=== PATIENT | female | born 1990 | race Caucasian/White ===

== ENCOUNTER 2019-09-22 03:30 | Inpatient (IN) | payer OTHER, SELFPAY ==
[2019-09-22] VITALS (104 sets, daily range): BP systolic 77–139; BP diastolic 36–86; PULSE 67–136; RESP 16; TEMP 36.2–37; O2SAT 97–100; BMI 33.2
[2019-09-22 05:25] LABS: Basophils Percent Auto 0.2 % (0.2-1.2); Eosinophils Absolute Auto 0.1 K/mm3 (0-0.3); Eosinophils Percent Auto 0.6 % (0-4.4); Hematocrit 34.1 % (37.0-47.0); Hemoglobin 11.7 g/dL (12.0-15.0); Immature Granulocyte Absolute 0.16 K/mm3 (0.00-0.031); Immature Granulocyte Percent A 1.2 % (0-0.5); Lymphocytes Absolute Auto 2.41 K/mm3 (0.9-3.2); Lymphocytes Percent Auto 18.7 % (18.3-44.2); Mean Corpuscular HGB Conc 34.3 g/dl (32-36); Mean Corpuscular Hemoglobin 31.8 pg (26-34); Mean Corpuscular Volume 92.7 fl (80-100); Mean Platelet Volume 9.7 fl (7.4-10.4); Monocytes Absolute Auto 0.9 K/mm3 (0.1-0.6); Neutrophils Absolute Auto 9.3 K/mm3 (1.3-6.7); Neutrophils Percent Auto 72.3 % (45.5-73.1); Platelet Count Result 211 k/mm3 (150-375); Red Blood Count 3.68 M/mm3 (4.2-5.4); Red Cell Distribution Width 13.3 % (11.5-14.5); White Blood Count 12.9 K/mm3 (4.5-10.0)
--- NOTE | 2019-09-22 06:11 | WPDANESEPP ---
Anes - Eval Pre Procedure Procedure: Labor epidural Date/Time: 09/22/19 06:11 Surgeon: Teetee Preop Diagnosis: pain during labor Pre Op Diagnosis: Leaking Fluid Patient Data Age: 29 Gender: F Height: 1.6 m Weight: 85 kg Last Vital Signs Temp 37.0 C 09/22/19 03:59 Pulse 76 09/22/19 05:04 BP 119/78 09/22/19 05:04 Allergies Allergy/AdvReac Type Severity Reaction Status Date / Time No Known Allergies Allergy Mild Verified 08/23/19 12:37 Home Medications Medication Instructions Recorded Confirmed Type PNV cmb#95-ferrous fumarate-FA 1 tablet PO DAILY 08/23/19 09/22/19 History [] aspirin [Aspirin Low Dose] 81 mg PO DAILY 08/23/19 09/22/19 History docusate sodium [Colace] 100 mg PO BID 08/23/19 09/22/19 History ergocalciferol (vitamin D2) 1,250 mcg PO 2XW 08/23/19 09/22/19 History [Vitamin D2] famotidine [Pepcid AC] 10 mg PO BID 08/23/19 08/23/19 History ferrous sulfate 325 mg PO BID 08/23/19 08/23/19 History valacyclovir [Valtrex] 500 mg PO DAILY 08/23/19 09/22/19 History Laboratory Tests 09/22/19 09/22/19 04:59 04:59 WBC 12.9 K/mm3 H K/mm3 (4.5-10.0) RBC 3.68 M/mm3 L M/mm3 (4.2-5.4) Hgb 11.7 g/dL L g/dL (12.0-15.0) Hct 34.1 % L % (37.0-47.0) MCV 92.7 fl fl (80-100) MCH 31.8 pg pg (26-34) MCHC 34.3 g/dl g/dl (32-36) RDW 13.3 % % (11.5-14.5) Plt Count 211 k/mm3 k/mm3 (150-375) MPV 9.7 fl fl (7.4-10.4) Immature Gran % (Auto) 1.2 % H % (0-0.5) Neut % (Auto) 72.3 % % (45.5-73.1) Lymph % (Auto) 18.7 % % (18.3-44.2) [place] % (Auto) 7.0 % % (2.6-8.5) Eos % (Auto) 0.6 % % (0-4.4) Baso % (Auto) 0.2 % % (0.2-1.2) Lymph # (Auto) 2.41 K/mm3 K/mm3 (0.9-3.2) [place] # (Auto) 0.9 K/mm3 H K/mm3 (0.1-0.6) Eos # (Auto) 0.1 K/mm3 K/mm3 (0-0.3) Baso # (Auto) 0.0 K/mm3 K/mm3 (0.0-0.1) Abs Immat Gran (auto) 0.16 K/mm3 H K/mm3 (0.00-0.031) Absolute Neuts (auto) 9.3 K/mm3 H K/mm3 (1.3-6.7) Absolute Nucleated RBC 0.0 K/mm3 K/mm3 (0.0-0.012) Nucleated RBC % 0.0 % % (0.0-0.2) RPR Pending Patient hx anesthesia problems: none Family hx anesthesia problems: none [facility] Past Medical History Medical History (Updated 09/22/19 @ 06:12 by Ruthy Summers CRNA) Herpes Obesity (BMI 30-39.9) Subcutaneous mass Surgical History Surgical History (Updated 08/24/19 @ 13:51 by Raquel Grove CMA) History of fasciotomy Bilateral legs; compartment syndrome Family History Family History (Updated 08/23/19 @ 12:45 by Kyaw Knowles RN) Father Coronary stent patent Hypertension Kidney disease, chronic, stage I (normal EGFR) Coronary arteriosclerosis Heart attack Social History Social History Smoking status: Never smoker Substance use: never Spiritual care concerns: No Exam Day of Procedure 09/22/19 06:11
[2019-09-22 07:53] LABS: Rapid Plasma Reagin Non-Reactive (NonReactive)
--- NOTE | 2019-09-22 08:09 | WPDOBADMIT ---
Obstetrics - Admit Note Admission Note: record reviewed. Pertinent additions to the history and/or any subsequent changes in the physical findings that are not consistent with the expected course of the were found. Additions to the history and/or subsequent changes in the physical findings follow. 29 yo primigravida comes to L & D at 40 weeks 1 day, confirmed by PERFECTO of 09/21/2019 with PROM at term. per pt noticed bigh gush around 2.45 am today.GBS negative status reassuring. Cx; 3.5/70/-2 Expectant managment of labor.
[2019-09-22] MEDS: LACTATED RINGERS 1,000 ML 125 ML IV CONT (09:43)
[2019-09-22] MEDS: OXYTOCIN 30 UNITS/NS 500 ML 30 UNITS/500 ML BAG IV CONT (09:44)
--- NOTE | 2019-09-22 16:24 | PM.OBPRVD ---
OB - Delivery Note Procedure Delivery date: 09/22/19 Intrapartal events: None Delivery augmentation: pitocin Delivery monitor: external FHT and external uterine Route of delivery: Laceration description: Perineal - 2nd Degree Delivery repair: vicryl Specimen: Yes (cord blood, gases, placenta with vasa previa and cord attachment to to edge) Estimated blood loss (mL): 300 Anesthesia type: Epidural Disposition: floor Complications: None [place] Baby Date of : 09/22/19 Weeks of gestation at delivery: 40 gender: Female Weight (pounds): 6 Weight (ounces): 15 presentation: vertex position: Left Occiput Anterior Placenta delivery description: Spontaneous cord vessel description: 3 Vessels score one minute: 9 score five minutes: 9
--- NOTE | 2019-09-22 16:27 | PM.OBDSVD ---
DS: Admitting Diagnosis Admitting Diagnosis Admitting Diagnosis: Labor OB - DS: Summary OB Procedures : None OB Procedures Intrapartum: Spontaneous Vag Delivery OB Procedures: : None Peripartum Data Delivery Method: Natural Vaginal Laceration description: Perineal - 2nd Degree Episiotomy description: None complications: none Status at Discharge Functional status at discharge: independent ambulation Time Spent with Patient Time attestation: Total time spent providing and/or coordinating discharge services: DS: Data Data Completed and Pending Labs on day of discharge: Labs from last 24 hours 09/22/19 09/22/19 09/22/19 04:59 04:59 04:59 WBC 12.9 H RBC 3.68 L Hgb 11.7 L Hct 34.1 L MCV 92.7 MCH 31.8 MCHC 34.3 RDW 13.3 Plt Count 211 MPV 9.7 Immature Gran % (Auto) 1.2 H Neut % (Auto) 72.3 Lymph % (Auto) 18.7 [place] % (Auto) 7.0 Eos % (Auto) 0.6 Baso % (Auto) 0.2 Lymph # (Auto) 2.41 [place] # (Auto) 0.9 H Eos # (Auto) 0.1 Baso # (Auto) 0.0 Abs Immat Gran (auto) 0.16 H Absolute Neuts (auto) 9.3 H Absolute Nucleated RBC 0.0 Nucleated RBC % 0.0 RPR Non-reactive Blood Type B Positive Antibody Screen Negative Discharge Plan Discharge Discharging Clinician: Dangelo Davis Patient Disposition: Home, Self-Care Activity: pelvic rest Diet: regular Discharge Instructions: Education: Mom and Baby Guide Given to: Mother Follow-Up: Call your delivering provider's office for an appointment to be seen in: Call for appointment Mom and baby should come to the [facility] for the follow-up appointment. Appointment Date/Time: September 24, 2019 at 10:00 am What to expect at your follow-up visit: Physical Assessment Call [phone] if you are unable to keep your appointment time. BREAST CARE: 1. Wear a snug supportive bra. 2. For engorgement discomfort: Breast Feeding: A. Apply warm moist washcloths B. Express milk as needed to relieve engorgement C. Wear loose clothing 3. For sore nipples: A. Identify correct latch-on B. Apply warm moist washcloths before and after nursing C. Air dry nipples after nursing D. May apply Lansinoh cream to nipples EPISIOTOMY/PERINEAL CARE: 1. Until bleeding stops, use your yadira bottle after urinating 2. Change your pad frequently throughout the day 3. You may take sitz baths several times a day (fill your bathtub with warm water and soak for 20 minutes.) Do NOT bathe in the water 4. No tub baths until seen by your physician - You may shower ACTIVITY: 1. Rest as much as possible. 2. Do not exercise or lift anything heavier than your baby (such as laundry or other children.) 3. Avoid stairs or driving as much as possible. 4. Do not put anything into the vagina. No douching, tampons, or sexual activity until seen by physician. NOTIFY PHYSICIAN IF YOU HAVE ANY QUESTIONS OR IF ANY OF THE FOLLOWING SYMPTOMS OCCUR: 1. If your episiotomy or incision becomes red, swollen, or more painful than what you have experienced in the hospital. 2. If your vaginal bleeding becomes foul smelling. 3. If your vaginal bleeding becomes more heavy than a period or if your bleeding changes from pink to bright red. However, you may pass an occasional walnut-sized clot once or twice for the first week . 4. If you experience a sharp, shooting pain in you calves. 5. If you discover a hard, reddened area on your breast or if you experience flu-like symptoms. DIET: 1. Eat regular, well-balanced meals. 2. Drink plenty of fluids daily. If , drink to thirst. Stand Alone Forms: General Discharge Information Follow-up/Referrals: Johnna Kingsley MD [Physician] - Discharge Medications: New ibuprofen 600 mg Tablet 600 mg PO Q6H PRN (Reason: Crampi
[2019-09-22] MEDS: OXYTOCIN 30 UNITS/NS 500 ML 30 UNITS/500 ML BAG 125 UNITS IV CONT (16:41)
[2019-09-22] MEDS: IBUPROFEN 600 MG TABLET PO ×2 (18:34→23:45)
[2019-09-22] MEDS: WITCH HAZEL 40 PADS 1 PAD TOPICAL (18:34)
[2019-09-22] MEDS: BENZOCAINE 20% AER SPR (*SP) 56 GM CAN 1 SPRAY TOPICAL (18:34)
--- NOTE | 2019-09-22 19:01 | PC.NURSE ---
This patient, Valorie Loco, was received from labor and delivery on 09/22/19 at 1856. Personal belongings list checked and signed. Patient/family oriented to unit policies and routines
[2019-09-22] MEDS: CALCIUM CARBONATE (TUMS) 500 MG (200 MG ELEMENTAL) PO (22:15)
[2019-09-23 05:22] LABS: Hematocrit 27.6 % (37.0-47.0); Hemoglobin 9.4 g/dL (12.0-15.0)
[2019-09-23] MEDS: IBUPROFEN 600 MG TABLET PO ×2 (06:38→15:30)
[2019-09-23] MEDS: POLYSACCHARIDE IRON COMPLEX 150 MG CAPSULE PO ×2 (06:39→15:30)
[2019-09-23] MEDS: MULTIVIT/MIN/PREN/FOL AC/IRON TABLET 1 TAB PO (06:39)
[2019-09-23] MEDS: DOCUSATE SODIUM 100 MG CAPSULE PO ×2 (06:39→15:30)
[2019-09-23] MEDS: LANOLIN (LANSINOH) 7.5 GM CREAM 1 APPLIC TOPICAL (06:40)
[2019-09-23 07:40] VITALS: BP 98/54; PULSE 82; RESP 18; TEMP 37.2; O2SAT 99
--- NOTE | 2019-09-23 08:50 | PC.NURSE ---
Consulted with patient, mother reports infant is freq. sleeply when feeding and is using a nipple shield on left breast. Infant tends to keep tongue up not allowing deep latch. Observed mother has had both nipples pierced, discussed possible impact on breast milk supply and plugged ducts. Reviewed infant feeding cues, frequencies, duration of feedings, feeding elimination flow sheet, and signs of adequate intake. Demonstrated stimulation techniques to wake for feeding. Assisted with to breast. Reviewed positioning/alignment in cross cradle, holding breast in U hold and guided asymmetrical latch on. Several attempts before infant was able to latch correctly and without discomfort to mother. Infant nursed eagerly, with steady draws and frequent swallowing noted. Reviewed signs of a correct latch, effective nursing and suck swallow ratio. Infant was able to maintain latch without discomfort to mother. Nipple care reviewed. Advised to stimulate to keep infant awake and nursing effectively to assist with maintaining deep latch and increase intake. Demonstrated how to adjust lach more deeply while feeding. Instructed mother to call out for RN assistance if she is unable to latch infant for feeding or she has discomfort with nursing. Instructed feeding should be initiated three hours from start of last feeding or if feeding cues are noted before. Mother voiced understanding of information shared.
[2019-09-23] MEDS: ACETAMINOPHEN 325 MG TABLET 650 MG PO (09:55)
--- NOTE | 2019-09-23 11:30 | PC.NURSE ---
Mother called out for observation of latch. Mother was able to latch independently without shield. Infant was able to latch correctly. Infant nursed eagerly, with steady draws and frequent swallowing noted. Reviewed signs of a correct latch, effective nursing and suck swallow ratio. was able to maintain latch without discomfort to mother. Nipple care reviewed. Discussed nipple shield precautions and possible complications. Instructions given on application and cleaning of shield. Discussed the need to initiate pumping if infant continues to nurse with the shield. Reviewed weaning techniques from shield. Mother has questions on supplementation, advised at this time does not require supplement and is WNL of all parameters of adequate intake. Patient verbalizes understanding. Discussed shield use and using if she unable to obtain deep latch without discomfort. Mother is wishing to be discharged to day. Mother is able to independently latch with appropriate positioning/alignment. She denies any nipple discomfort, is feeding as required and waking to feed if needed. has had several effective feedings since and is currently meeting outcomes for weight, output, jaundice and feeding frequencies. Mother states she feels confident to continue effective at home. Reviewed transition to breast milk, signs of adequate intake, and engorgement/relief. Instructed to call ICP if intake/output less than required. Reviewed regular medications mother is taking. Information provided per Catina. Reviewed community resources on the [facility] website and in the Mom/Baby guide. Information on outpatient services provided. Mother has no further questions at this time.
--- NOTE | 2019-09-23 12:22 | PM.OBPNVD ---
OB - PN: Subj Subjective Date/time seen: 09/23/19 12:22 S: doing well no complaints OB - PN: Obj Data Labs CBC & Chem 7: 09/23/19 04:42 Labs: Laboratory Results - last 24 hr 09/23/19 04:42 Hgb 9.4 L Hct 27.6 L OB - PN A/P Assessment and Plan (1) (normal spontaneous vaginal delivery): Code(s): O80 - Encounter for full-term uncomplicated delivery Status: Acute Assessment and Plan: discharge home unsure about birthcontorl Time Spent With Patient Time: Total time spent is greater than 50% in coordination of care (as documented) at patient's floor/unit and/or counseling patient: Exam GI: Other: ff below umbilicus
--- NOTE | 2019-09-23 17:59 | PC.NURSE ---
Patient viewed the discharge video Mother & Baby Care, The First Two Weeks . Patient was given the opportunity and encouraged to ask questions. Patient verbalized understanding of information shared and has been given the mother/baby guide for home reference.
[2019-09-24 10:23] VITALS: BP 106/68; PULSE 78; RESP 22
== END 2019-09-23 18:16 | disposition home or self-care (01) | DRG 807 ==
LOC: ANHLDR 05:23 → ANHOB2 09-23 13:18 → ANHLDR 09-24 10:53 → ANHOB2 09-24 10:53
PROVIDERS: Admitting Provider Obstetrics & Gynecology; Visit Provider Obstetrics & Gynecology
DX: O98.52 Other viral diseases complicating childbirth (principal); Z37.0 Single live birth; Z3A.40 40 weeks gestation of pregnancy; B00.9 Herpesviral infection, unspecified; O70.1 Second degree perineal laceration during delivery; O69.4XX0 Labor and delivery complicated by vasa previa, not applicable or unspecified; O99.214 Obesity complicating childbirth; E66.9 Obesity, unspecified
CPT/HCPCS: 36415; 85014; 85018; 85025; 86592; 86850; 86900; 86901; 88307; A9270; J2590; J2795; J7120

== ENCOUNTER → 2021-10-30 13:42 | Outpatient (CLI) | payer OTHER, SELFPAY ==
--- NOTE | ~2021-10-30 | US_ITS ---
US OB /maternal detail DATE: 10/30/2021 14:21 INDICATION: anatomy screen TECHNIQUE: Real-time imaging and Doppler analysis COMPARISON: None FINDINGS: Live begum intrauterine gestation, fetus in variable position during the examination. Posterior placenta, lower margin 3.3 cm above the internal os. Subjectively normal amount of amniotic fluid. No evidence of cerebral ventriculomegaly. The cerebellum, cisterna magna and nuchal fold are normal. spine appears intact The diaphragm is normal. Four-chamber heart with heart rate 143 bpm. Left and right ventricular outflow tracts appear normal. No evidence of hydronephrosis. Fluid is noted in the stomach. The urinary bladder i s demonstrated. All 4 extremities are noted. Three-vessel umbilical cord with normal insertion at abdominal wall. Biparietal diameter 4.01 cm; 18 weeks 1 day Head circumference 15.75 cm; 18 weeks 4 days Abdominal circumference 13.68 cm; 19 weeks 1 day Femur length 2.88 cm; 18 weeks 6 days Composite age by Hadlock formula is 18 weeks 5 days +/- 1 week 2 days with PERFECTO of 03/28/2022, compared to 03/25/2022 by LMP. Estimated weight is 265 +/- 40 g. Estimated weight GP: 33.2% Head circumference/abdominal circumference 1.15, within normal range of 1.09-1.26 IMPRESSION: Normal anatomy screen Estimated age is 18 weeks 5 days +/- 1 week 2 days with PERFECTO of 03/28/2022. Reviewed, dictated and finalized at [facility]. Reviewed, dictated and finalized at location [facility].
== END ==
PROVIDERS: PCP Advanced Practice Midwife; Visit Provider Advanced Practice Midwife
DX: Z36.9 Encounter for antenatal screening, unspecified (principal); Z3A.18 18 weeks gestation of pregnancy
CPT/HCPCS: 76805

== ENCOUNTER → 2022-04-01 13:22 | Outpatient (CLI) | payer OTHER, SELFPAY ==
--- NOTE | ~2022-04-01 | US_ITS ---
EXAMINATION: US OB follow up DATE: 04/01/2022 13:50 INDICATION: Evaluate amniotic fluid index. TECHNIQUE: Real-time transabdominal obstetric ultrasound. FINDINGS: Comparison to ultrasound dated 10/30/2021 There is a single living fetus in vertex presentation. The placenta is posterior without placenta pr evia. cardiac activity and movement is noted with a heart rate of 144 beats per minute. T he amniotic fluid volume is normal. JOSÉ LUIS measures 7.8 cm. The following biometric data were obtained: BPD: 99mm corresponds to gestational age 40 weeks 3 days. Head circumference: 362mm Abdominal circumference: 373mm corresponds to gestational age 38 weeks 1 days. Femur length: 74mm corresponds to gestational age 37 weeks 6 days. Estimated weight: 4152grams +/- 622grams 82.1%.] IMPRESSION: 1. Single living intrauterine in vertex presentation with an estimated gestational age of 40 weeks 4 days by inititial ultrasound. Appropriate interval growth. 2. Amniotic fluid index is lower limits of normal measuring 7.8 cm (normal range for gestational age is 7.1-21.4 cm).. Reviewed, dictated and finalized at location [facility]. OR C [employer] DEV[employer]OPER IMPRESSION: 1. Single living intrauterine in vertex presentation with an estimat ed gestational age of 40 weeks 4 days by inititial ultrasound. Appropriate int erval growth. 2. Amniotic fluid index is lower limits of normal measuring 7.8 cm (normal rang e for gestational age is 7.1-21.4 cm)..
== END ==
PROVIDERS: PCP Advanced Practice Midwife; Visit Provider Advanced Practice Midwife
DX: O48.0 Post-term pregnancy (principal); Z3A.40 40 weeks gestation of pregnancy
CPT/HCPCS: 76816

== ENCOUNTER 2022-04-05 17:03 | Inpatient (IN) | payer OTHER, SELFPAY ==
[2022-04-05] VITALS (11 sets, daily range): BP systolic 105–126; BP diastolic 58–76; PULSE 64–238; O2SAT 82–100; BMI 33.2
--- NOTE | 2022-04-05 17:28 | WPDOBADMIT ---
Obstetrics - Admit Note Admission Note: record reviewed. No pertinent additions to the history and/or any subsequent changes in the physical findings that are not consistent with the expected course of the were found. Additions to the history and/or subsequent changes in the physical findings follow. None.
--- NOTE | 2022-04-05 17:49 | P.PNOB_ITS ---
Pain Control Date/time seen: 04/05/22 17:49 Pain control: tolerating well Pelvic Exam Dilation (cm): 4 Effacement (%): 75 station: -2 Amniotic membrane status: Intact Contractions Monitor mode: External Contraction pattern: Irregular Contraction intensity: Moderate Status status: Category l Assessment and Plan Plan: continuous present management Comments: frame repairer to bedside. heart rate tracing category 1. Occasional uterine contractions. Per previous discussion in the office, Valorie desires AROM and to try and avoid Pitocin if possible. Discussed risk and benefits of amniotomy. Amniotomy performed with return of small amount of clear fluid. Anticipate vaginal .
--- NOTE | 2022-04-05 17:50 | LDADM ---
This patient, Valorie Maldonado, was admitted to Labor/Delivery/Recovery 104 on 04/05/22 at 17:03. Plans for labor, pain management and were discussed with patient. Patient/family oriented to hospital policies and general routines including ID bracelet, bed and alarms, visiting hours, pain management, procedures, bathroom and other care routines, personal items, smoking policy, room service/diet and guest tray routines, security routines, and visiting hours. Patient/Family are encouraged to report perceived risks to care and to ask questions if they do not understand what they are told or what they should do. See OBIX for further documentation.
[2022-04-05 18:00] LABS: Basophils Percent Auto 0.2 % (0.2-1.2); Eosinophils Percent Auto 0.2 % (0-4.4); Hematocrit 35.9 % (37.0-47.0); Hemoglobin 12.2 g/dL (12.0-15.0); Immature Granulocyte Absolute 0.06 K/mm3 (0.00-0.031); Immature Granulocyte Percent A 0.7 % (0-0.5); Lymphocytes Absolute Auto 2.34 K/mm3 (0.9-3.2); Lymphocytes Percent Auto 26.2 % (18.3-44.2); Mean Corpuscular Volume 94.2 fl (80-100); Mean Platelet Volume 9.9 fl (7.4-10.4); Monocytes Absolute Auto 0.5 K/mm3 (0.1-0.6); Monocytes Percent Auto 5.5 % (2.6-8.5); Neutrophils Percent Auto 67.2 % (45.5-73.1); Platelet Count Result 241 k/mm3 (150-375); Red Blood Count 3.81 M/mm3 (4.2-5.4); White Blood Count 8.9 K/mm3 (4.5-10.0)
--- NOTE | 2022-04-05 18:46 | WPDANESEPP ---
Anes - Eval Pre Procedure Procedure: Labor epidural Date/Time: 04/05/22 18:46 Preop Diagnosis: Abdominal pain with contractions Pre Op Diagnosis: Induction of Labor Patient Data Age: 32 Gender: F Height: 1.6 m Weight: 85 kg Last Vital Signs Pulse 98 04/05/22 18:15 BP 120/71 04/05/22 18:15 O2 Del Method Room Air 04/05/22 17:49 Allergies Allergy/AdvReac Type Severity Reaction Status Date / Time No Known Allergies Allergy Mild Verified 02/25/22 13:34 Home Medications Medication Instructions Recorded Confirmed Type docusate sodium 100 mg capsule 100 mg PO BID 08/23/19 04/05/22 History (Colace) ferrous sulfate 325 mg (65 mg 325 mg PO BID 08/23/19 04/05/22 History iron) tablet vit no.95-ferrous 1 tablet PO DAILY 08/23/19 04/05/22 History fumarate 28 mg-folic acid 800 mcg tablet () ergocalciferol (vitamin D2) 1,250 1,250 mcg PO WEEKLY 02/25/22 04/05/22 History mcg (50,000 unit) capsule (Vitamin D2) famotidine 20 mg tablet (Pepcid AC) 20 mg PO BID 02/25/22 04/05/22 History valacyclovir 500 mg tablet 500 mg PO Q12H 02/25/22 04/05/22 History (Valtrex) Laboratory Tests 04/05/22 04/05/22 04/05/22 17:41 17:41 17:41 WBC 8.9 K/mm3 K/mm3 (4.5-10.0) RBC 3.81 M/mm3 L M/mm3 (4.2-5.4) Hgb 12.2 g/dL g/dL (12.0-15.0) Hct 35.9 % L % (37.0-47.0) MCV 94.2 fl fl (80-100) MCH 32.0 pg pg (26-34) MCHC 34.0 g/dl g/dl (32-36) RDW 14.0 % % (11.5-14.5) Plt Count 241 k/mm3 k/mm3 (150-375) MPV 9.9 fl fl (7.4-10.4) Immature Gran % (Auto) 0.7 % H % (0-0.5) Neut % (Auto) 67.2 % % (45.5-73.1) Lymph % (Auto) 26.2 % % (18.3-44.2) [place] % (Auto) 5.5 % % (2.6-8.5) Eos % (Auto) 0.2 % % (0-4.4) Baso % (Auto) 0.2 % % (0.2-1.2) Lymph # (Auto) 2.34 K/mm3 K/mm3 (0.9-3.2) [place] # (Auto) 0.5 K/mm3 K/mm3 (0.1-0.6) Eos # (Auto) 0.0 K/mm3 K/mm3 (0-0.3) Baso # (Auto) 0.0 K/mm3 K/mm3 (0.0-0.1) Abs Immat Gran (auto) 0.06 K/mm3 H K/mm3 (0.00-0.031) Absolute Neuts (auto) 6.0 K/mm3 K/mm3 (1.3-6.7) Absolute Nucleated RBC 0.0 K/mm3 K/mm3 (0.0-0.012) Nucleated RBC % 0.0 % % (0.0-0.2) RPR Pending Blood Type B Positive Antibody Screen Negative : gestational age HCG: positive Patient hx anesthesia problems: none Family hx anesthesia problems: none Results Review: All pre-operative results and documents have been reviewed as part of the pre-operative evaluation. [facility] Past Medical History Medical History Anxiety Herpes (normal spontaneous vaginal delivery) Obesity (BMI 30-39.9) Subcutaneous mass Surgical History Surgical History History of fasciotomy Bilateral legs; compartment syndrome Family History Family History Father Coronary stent patent Hypertension Kidney disease, chronic, stage I (normal EGFR) Coronary arteriosclerosis Heart attack Social History Social History Smoking status: Never smoker Substance use: never Lack of Transportation: No Lack of Food: Never True Current Housing: I Have Housing Concerned About Future Housing: No Difficulty Paying Gas/Electric Bills: No Difficulty Paying for Meds: No Currently Unemployed: No Education: Associate Degree Difficulty w/ Childcare or Family Care: No Spiritual care concerns: No Exam Day of Procedure 04/05/22 18:46 Patient weight: obese Airway: Mallampati scale class II
[2022-04-05] MEDS: LACTATED RINGERS 1,000 ML 125 ML IV CONT (22:15)
[2022-04-05] MEDS: LIDOCAINE HCL 1% PF 30 ML VIAL (23:49)
[2022-04-05] MEDS: OXYTOCIN 30 UNITS/NS 500 ML 30 UNITS/500 ML BAG 999 UNITS (23:49)
[2022-04-06] VITALS (18 sets, daily range): BP systolic 73–119; BP diastolic 49–79; PULSE 65–121; RESP 16–18; TEMP 36.2–37.1; O2SAT 97–99
[2022-04-06] MEDS: IBUPROFEN 600 MG TABLET PO ×4 (00:15→23:50)
--- NOTE | 2022-04-06 00:23 | P.PCNOB_ITS ---
OB - Delivery Note Procedure Delivery date: 04/05/22 Procedure: Induction method: AROM Delivery monitor: External FHT, External Uterine and Internal FHT Route of delivery: Episiotomy description: None Laceration Description: Perineal - 2nd Degree Delivery repair: vicryl Specimen: No Quantitative Blood Loss (ml): 250 Anesthesia type: Local Disposition: Floor Narrative: Patient made extremely fast cervical change from 5.5 cm to complete. She began pushing with contractions. heart rate decelerations noted. Patient repositioned and FSE applied. Patient pushed while on her hands and knees and brought the head to a crown. She delivered the head with 1 push. A loose nuchal cord was identified. With the next push she delivered the remainder of the infant. The cord was untangled from around the neck and body. The patient was then repositioned to [facility]' and the was placed skin to skin. After 1 minute of life the cord was doubly clamped and cut. Cord blood and cord gases were obtained. The placenta delivered spontaneously. A second-degree perineal laceration was repaired in the usual fashion with local anesthetic. All delivery counts were correct [place] Baby Date of : 04/06/22 Time of : 22:52 Weeks of gestation at delivery: 41 Infant gender: Male Weight (pounds): 7 Weight (ounces): 13 presentation: vertex position: Right Occiput Anterior Placenta delivery description: Spontaneous Cord Vessel Description: 3 Vessels and Delayed Cord Clamping score one minute: 8 score five minutes: 9
--- NOTE | 2022-04-06 00:33 | PM.OBDSVD ---
DS: Admitting Diagnosis Discharge Date 04/07/22 Admitting Diagnosis IUP at 41weeks 4 days DS: Discharge Diagnosis Discharge Diagnosis (1) (normal spontaneous vaginal delivery): Code(s): O80 - Encounter for full-term uncomplicated delivery Status: Acute Assessment and Plan: Lochia WNL. Laceration approximated (2) Mother currently breast-feeding: Code(s): Z39.1 - Encounter for care and examination of lactating mother Status: Acute Assessment and Plan: Baby well OB - DS: Summary Hospital Course Hospital Course: Uncomplicated OB Procedures : NST and Ultrasound OB Procedures Intrapartum: Spontaneous Vag Delivery OB Procedures: : None Peripartum Data Infant Delivery Method: Natural Vaginal Laceration Description: Perineal - 2nd Degree Episiotomy description: None complications: none Status at Discharge Functional status at discharge: independent ambulation Overall status at discharge: patient is progressing back to baseline Time Spent with Patient Time attestation: Total time spent providing and/or coordinating discharge services: DS: Data Data Completed and Pending Labs on day of discharge: Labs from last 24 hours 04/05/22 04/05/22 04/05/22 17:41 17:41 17:41 WBC 8.9 RBC 3.81 L Hgb 12.2 Hct 35.9 L MCV 94.2 MCH 32.0 MCHC 34.0 RDW 14.0 Plt Count 241 MPV 9.9 Immature Gran % (Auto) 0.7 H Neut % (Auto) 67.2 Lymph % (Auto) 26.2 [place]kinson % (Auto) 5.5 Eos % (Auto) 0.2 Baso % (Auto) 0.2 Lymph # (Auto) 2.34 [place]kinson # (Auto) 0.5 Eos # (Auto) 0.0 Baso # (Auto) 0.0 Abs Immat Gran (auto) 0.06 H Absolute Neuts (auto) 6.0 Absolute Nucleated RBC 0.0 Nucleated RBC % 0.0 RPR Pending Blood Type B Positive Antibody Screen Negative Discharge Plan Discharge Attending physician on discharge: Johnna Kingsley Consulting providers: Karen García ; Jeovanny Ny Discharging Clinician: Johnna Kingsley Anticipated Discharge Date/Time: 04/07/22 00:34 Patient Disposition: Home, Self-Care Activity: may shower Diet: as tolerated and regular Discharge Instructions: Education: Mom and Baby Guide Given to: Mother Follow-Up: Call your delivering provider's office for an appointment to be seen in: 6 Weeks Mom and baby should come to the [facility] for the follow-up appointment. Appointment Date/Time: April 09, 2022 at 9:00 am What to expect at your follow-up visit: Blood Pressure Check Call [phone] if you are unable to keep your appointment time. BREAST CARE: * Wear a snug supportive bra. * For engorgement discomfort: Breast Feeding: * Apply warm moist washcloths * Express milk as needed to relieve engorgement * Wear loose clothing * For sore nipples: * Identify correct latch-on * Apply warm moist washcloths before and after nursing * Air dry nipples after nursing * May apply Lansinoh cream to nipples PERINEAL CARE: * Until bleeding stops, use your yadira bottle after urinating * Change your pad frequently throughout the day * You may take sitz baths several times a day (fill your bathtub with warm water and soak for 20 minutes.) Do NOT bathe in the water * No tub baths until seen by your physician - You may shower ACTIVITY: * Rest as much as possible. * Do not exercise or lift anything heavier than your baby (such as laundry or other children.) * Avoid stairs or driving as much as possible. * Do not put anything into the vagina. No douching, tampons, or sexual activity until seen by physician. NOTIFY PHYSICIAN IF YOU HAVE ANY QUESTIONS OR IF ANY OF THE FOLLOWING SYMPTOMS OCCUR: * If your vaginal bleeding becomes foul smelling. * If your vaginal bleeding becomes more heavy than a period or if your bleeding changes from pink to bright red. H
[2022-04-06] MEDS: ACETAMINOPHEN 325 MG TABLET 650 MG PO ×2 (03:21→14:06)
[2022-04-06] MEDS: WITCH HAZEL 40 PADS 1 PAD (03:59)
[2022-04-06] MEDS: DOCUSATE SODIUM 100 MG CAPSULE PO ×2 (08:25→16:23)
[2022-04-06] MEDS: MULTIVIT/MIN/PREN/FOL AC/IRON TABLET 1 TAB PO (08:25)
--- NOTE | 2022-04-06 10:53 | PM.OBPNVD ---
OB - PN: Subj Subjective Date/time seen: 04/06/22 10:40 Patient comments: no complaints and pain well controlled baby status: doing well and nursing well [place] feeding status: exclusively breast feeding Narrative: Valorie is doing well. Minimal discomfort. Bleeding WNL. Nursing without difficulty. She desires to be discharged home late this evening. OB - PN: Obj Data Labs 04/05/22 17:41 Labs: Laboratory Results - last 24 hr 04/05/22 04/05/22 17:41 17:41 WBC 8.9 RBC 3.81 L Hgb 12.2 Hct 35.9 L MCV 94.2 MCH 32.0 MCHC 34.0 RDW 14.0 Plt Count 241 MPV 9.9 Immature Gran % (Auto) 0.7 H Neut % (Auto) 67.2 Lymph % (Auto) 26.2 [place] % (Auto) 5.5 Eos % (Auto) 0.2 Baso % (Auto) 0.2 Lymph # (Auto) 2.34 [place] # (Auto) 0.5 Eos # (Auto) 0.0 Baso # (Auto) 0.0 Abs Immat Gran (auto) 0.06 H Absolute Neuts (auto) 6.0 Absolute Nucleated RBC 0.0 Nucleated RBC % 0.0 Blood Type B Positive Antibody Screen Negative OB - PN A/P Plan day: 1 Plan: routine care Comments: Plan for possible discharge home late this evening. Time Spent With Patient Time: Total time spent is greater than 50% in coordination of care (as documented) at patient's floor/unit and/or counseling patient: Review of Systems Review of Systems: All systems reviewed & are unremarkable except as noted in HPI and below Exam Narrative: Alert and oriented. Mood is pleasant and cooperative. Urinating without difficulty. Denies passing any large clots. Perineum with moderate edema. Fundus firm and below umbilicus. Laceration is approximated Const: General: cooperative, healthy appearing, no acute distress and alert Orientation/consciousness: patient oriented x3 Limitations: no limitations Resp: Effort & Inspection: normal respiratory effort Auscultation: clear to auscultation bilaterally Cardio: Rate: regular rate GI: Inspection: normal to inspection Neuro: General: patient oriented x3 Extrem: General: normal to inspection Psych: Appearance: grossly normal Mental Status: mental status grossly normal Affect: normal affect Thought process: Normal thought process present
[2022-04-06 12:42] LABS: Hemoglobin 11.1 g/dL (12.0-15.0); Mean Corpuscular HGB Conc 34.7 g/dl (32-36); Mean Corpuscular Hemoglobin 32.2 pg (26-34); Mean Corpuscular Volume 92.8 fl (80-100); Mean Platelet Volume 9.9 fl (7.4-10.4); Platelet Count Result 216 k/mm3 (150-375); Red Blood Count 3.45 M/mm3 (4.2-5.4); Red Cell Distribution Width 13.9 % (11.5-14.5); White Blood Count 13.4 K/mm3 (4.5-10.0)
[2022-04-07 08:20] VITALS: BP 100/63; PULSE 75; RESP 16; TEMP 36.7; O2SAT 98
[2022-04-07] MEDS: MULTIVIT/MIN/PREN/FOL AC/IRON TABLET 1 TAB PO (08:22)
[2022-04-07] MEDS: DOCUSATE SODIUM 100 MG CAPSULE PO (08:23)
--- NOTE | 2022-04-07 09:27 | PM.OBPNVD ---
OB - PN: Subj Subjective Date/time seen: 04/07/22 09:27 Patient comments: no complaints and pain well controlled baby status: doing well and nursing well OB - PN: Obj Data Labs 04/06/22 12:32 Labs: Laboratory Results - last 24 hr 04/06/22 12:32 WBC 13.4 H RBC 3.45 L Hgb 11.1 L Hct 32.0 L MCV 92.8 MCH 32.2 MCHC 34.7 RDW 13.9 Plt Count 216 MPV 9.9 OB - PN A/P Plan day: 2 Plan: routine care, discharge home, follow up 6 weeks and other (plans condoms) Time Spent With Patient Time: Total time spent is greater than 50% in coordination of care (as documented) at patient's floor/unit and/or counseling patient: Exam : Bimanual exam- vagina & uterus: other (Uterus firm, nt @U)
[2022-04-08 10:01] LABS: Rapid Plasma Reagin Non-Reactive (NonReactive)
[2022-04-09 08:51] VITALS: BP 109/67; PULSE 82; RESP 20; TEMP 36.8; O2SAT 98
== END 2022-04-07 12:35 | disposition home or self-care (01) | DRG 806 ==
LOC: ANHLDR 04-06 00:36 → ANHOB2 04-06 03:34
PROVIDERS: Admitting Provider Obstetrics & Gynecology Gynecology; PCP Advanced Practice Midwife; Visit Provider Obstetrics & Gynecology Gynecology
DX: O69.81X0 Labor and delivery complicated by cord around neck, without compression, not applicable or unspecified (principal); O98.32 Other infections with a predominantly sexual mode of transmission complicating childbirth; Z37.0 Single live birth; Z3A.41 41 weeks gestation of pregnancy; O36.8330 Maternal care for abnormalities of the fetal heart rate or rhythm, third trimester, not applicable or unspecified; O70.1 Second degree perineal laceration during delivery; O99.344 Other mental disorders complicating childbirth; F41.9 Anxiety disorder, unspecified; O99.02 Anemia complicating childbirth; D64.9 Anemia, unspecified; A60.00 Herpesviral infection of urogenital system, unspecified
CPT/HCPCS: 36415; 85025; 85027; 86592; 86850; 86900; 86901; A9270; J2590; J7120

== ENCOUNTER 2024-08-04 07:49 | Outpatient (CLI) | payer OTHER, SELFPAY ==
--- NOTE | ~2024-08-04 | MMUS_ITS ---
EXAMINATION: MM diagnostic marilee BI w vidal, US breast BI complete HISTORY: Breast pain TECHNIQUE: Additional 3-D tomosynthesis images of the breasts were performed and synthetic 2-D images were generated. CAD analysis was submitted and interpreted. High resolution bilateral complete breas t ultrasound was performed. COMPARISON: None BREAST PARENCHYMAL COMPOSITION: Dense: The breasts are heterogeneously dense, which may obscure small masses FINDINGS: MAMMOGRAPHIC FINDINGS: There are no suspicious masses, calcifications or architectural distortion in either breast to sugges t malignancy. ULTRASOUND: Complete US of all 4 quadrants of the breast/s and retroareolar region was reviewed. Right breast: At 8:00, 5 cm from the nipple there is a 4 mm cyst. Also at this location is a 1.2 cm i ntramammary lymph node. No suspicious masses in the right breast to suggest malignancy. Left breast: At 12:00, 3 cm from the nipple there is a 5 mm cyst. At 7:00, 5 cm from the nipple there is a 9 mm cyst. At 12:00, 3 cm from the nipple there is a cluster of microcysts, measuring 8 mm in a ggregate. IMPRESSION: 1. No evidence for malignancy in either breast. Benign findings. 2. Routine yearly screening mammogram and regular clinical breast examination are recommended. BI-RADS Category 2: Benign finding(s). Reviewed, dictated and finalized at location A. IMPRESSION: 1. No evidence for malignancy in either breast. Benign findings. 2. Routine yearly screening mammogram and regular clinical breast examination a re recommended. BI-RADS Category 2: Benign finding(s).
== END 2024-08-04 07:50 | disposition home or self-care (01) ==
PROVIDERS: PCP Obstetrics & Gynecology Gynecology; Visit Provider Obstetrics & Gynecology Gynecology
DX: N64.4 Mastodynia (principal)
CPT/HCPCS: 76641; 77062; 77066; G0279